=== PATIENT | female | born 1980 | race Two or more races ===

== ENCOUNTER 2017-02-19 06:49 | Day surgery (SDC) | payer BC ==
[~2017-02-19 06:49] MED LIST: AMBIEN10 M1 PO; COUGH MED W/CODEINE; IBUPROFEN800 M1 PO
[2017-02-19 08:09] LABS: ALB/GLOB RATIO 0.8 (0.8-2.0); ALBUMIN 3.3 g/dl (3.5-5.0); ALKALINE PHOSPHATASE 79 U/L (33-138); ALT/SGPT 43 U/L (12-78); ANION GAP 11 mmol/L (0-20); AST/SGOT 24 U/L (10-40); BILIRUBIN,TOTAL 0.3 mg/dl (0-1.5); BLOOD UREA NITROGEN 11 mg/dl (6-24); CALCIUM 8.5 mg/dl (8.5-10.5); CARBON DIOXIDE-VENOUS 23 mmol/L (22-32); CHLORIDE 110 mmol/l (96-110); CREATININE 0.77 mg/dl (0.50-1.10); GLUCOSE 92 mg/dL (70-110); SODIUM 140 mmol/L (135-145); eGFR VALUE FOR BLACK >90 mL/Min
== END 2017-02-19 11:25 ==
LOC: SHSB 06:49 → PACU 09:36 → SHSB 10:05
PROVIDERS: Specialist
PROC: 0HBU0ZZ Excision of Left Breast, Open Approach (ICD-10-PCS; principal; 2017-02-19)
DX: D24.2 Benign neoplasm of left breast (principal); G43.909 Migraine, unspecified, not intractable, without status migrainosus; Z79.899 Other long term (current) drug therapy; Z88.6 Allergy status to analgesic agent; Z80.3 Family history of malignant neoplasm of breast; Z98.51 Tubal ligation status; Z98.890 Other specified postprocedural states
CPT/HCPCS: J0690; J2250; J2765; J3010